=== PATIENT | female | born 1995 | race Caucasian/White ===

== ENCOUNTER 2017-10-29 17:45 | Emergency (ER) | payer OTHER, BC ==
[~2017-10-29] VITALS: Ht 154.9 cm; Wt 72.1 kg
[2017-10-29 18:10] LABS: BASOPHIL (%) 0.4 % (0-1); EOSINOPHIL (%) 2.6 % (0-5); EOSINOPHIL COUNT 0.2 K/uL (0-0.3); HEMOGLOBIN 14.3 G/DL (11.9-15.5); IMMATURE GRANULOCYTE (%) 0.3 % (0.0-0.7); LYMPHOCYTE (%) 21.4 % (15-42); LYMPHOCYTE COUNT 1.7 K/uL (1.0-2.8); MCH 29.5 PG (29.0-34.0); MCV 86.6 FL (83-99); MONOCYTE (%) 7.4 % (3-12); MONOCYTE COUNT 0.6 K/uL (0-0.8); NEUTROPHIL (%) 67.9 % (45-76); NEUTROPHIL COUNT 5.4 K/uL (1.8-6.4); PLATELET COUNT 237 K/uL (156-360); RBC DIS.WIDTH-CV 11.6 % (11.8-14.6); RBC DIS.WIDTH-SD 37.1 % (39-53); RED BLOOD COUNT 4.85 M/uL (3.80-5.20); WHITE BLOOD COUNT 7.9 K/uL (4.1-10.2)
[2017-10-29 18:21] LABS: CHLORIDE 108 mEq/L (99-109); POTASSIUM 3.7 mEq/L (3.7-5.4); SODIUM 140 mEq/L (136-147)
[2017-10-29 18:22] LABS: GLUCOSE 96 mg/dL (70-99)
[2017-10-29 18:26] LABS: CREATININE 0.7 mg/dL (0.6-1.3)
[2017-10-29 18:27] LABS: UREA NITROGEN (BUN) 10 mg/dL (9-23)
[2017-10-29 18:30] LABS: GFR ESTIMATE (CALCULATED) > 59 mL/min/
[2017-10-29] MEDS ORDERED: AUGMENTIN875 MG PO (20:47)
[2017-10-29 21:01] VITALS: BP 155/88
== END 2017-10-29 21:14 | disposition home or self-care (01) ==
LOC: EME 17:45
DX: S51.831A Puncture wound without foreign body of right forearm, initial encounter (principal); S60.410A Abrasion of right index finger, initial encounter; L03.113 Cellulitis of right upper limb; W55.01XA Bitten by cat, initial encounter; J45.909 Unspecified asthma, uncomplicated; Q23.1 Congenital insufficiency of aortic valve
CPT/HCPCS: 73090; 73130; 80048; 85025; 99281; 99284